=== PATIENT | female | born 1955 | race Caucasian/White ===

== ENCOUNTER 2023-06-29 13:08 | Emergency (ER) | payer MEDICARE ==
[2023-06-29] MEDS ORDERED: Sodium Chloride 0.9% 10 ML Syringe FLUSH PRN (13:16)
[2023-06-29 13:28] LABS: HEMATOCRIT 40.2 % (37.0-47.0); HEMOGLOBIN 13.9 g/dL (11.5-16.5); MEAN CORPUSCULAR HEMOGLOBIN 30.2 pg (27.0-32.0); MEAN CORPUSCULAR HGB CONC 34.6 g/dL (31.0-35.0); MEAN PLATELET VOLUME 9.3 fL (6.0-10.0); RED BLOOD CELL COUNT 4.61 M/uL (3.80-5.80); RED CELL DISTRIBUTION WIDTH 13.4 % (11.0-16.0); WHITE BLOOD CELL COUNT,WBC 9.4 K/uL (4.0-11.0)
[2023-06-29 13:49] LABS: A/G RATIO 1.1 (0.8-2.0); ALBUMIN 3.8 g/dL (3.4-5.0); ANION GAP 15.9 mmol/L (5.0-15.0); BILIRUBIN TOTAL 0.4 mg/dL (0.0-1.0); BUN/CREATININE RATIO 16.2 (6-25); CALCIUM 9.8 mg/dL (8.5-10.1); CREATININE 1.05 mg/dL (0.55-1.02); EST CRCL DRUG DOSING (CG) 48.48 mL/min; MAGNESIUM 1.7 mg/dL (1.8-2.4); PHOSPHORUS 2.6 mg/dL (2.5-4.9); POTASSIUM,K 3.9 mmol/L (3.5-5.1); PROTEIN TOTAL,TP 7.3 g/dL (6.4-8.2)
[2023-06-29] MEDS: Ondansetron 4 MG/2 ML SDV IVPUSH ONE (13:58)
[2023-06-29] MEDS: Sodium Chloride 0.9% 1,000 ML IV SCH (13:58)
[2023-06-29] MEDS: Ondansetron 4 MG/2 ML SDV ONE (14:14)
== END 2023-06-29 17:10 | disposition home or self-care (01) ==
LOC: LB.ED 13:08
DX: E83.42 Hypomagnesemia (principal); R42 Dizziness and giddiness
CPT/HCPCS: 36415; 70450; 71045; 80053; 83735; 84100; 84443; 84484; 85027; 85379; 93005; 93010; 96361; 96365; 96375; 99283; 99284-25; J2405; J3475; J7030

== ENCOUNTER 2023-10-22 09:57 | Emergency (ER) | payer MEDICARE ==
[2023-10-22] MEDS: Ondansetron 4 MG Tab.DIS PO ONE (10:34)
== END 2023-10-22 10:55 | disposition home or self-care (01) ==
LOC: LB.ED 09:57
DX: U07.1 COVID-19 (principal); K29.70 Gastritis, unspecified, without bleeding; K29.80 Duodenitis without bleeding; I10 Essential (primary) hypertension; Z88.2 Allergy status to sulfonamides; Z87.891 Personal history of nicotine dependence
CPT/HCPCS: 71045; 99284; Q0162

== ENCOUNTER 2025-07-17 08:10 | Emergency (ER) | payer MEDICARE ==
[2025-07-17] MEDS ORDERED: Sodium Chloride 0.9% 10 ML Syringe FLUSH PRN (09:48)
[2025-07-17] MEDS: Ketorolac 15 MG/ML SDV IVPUSH ONE (10:04)
== END 2025-07-17 11:30 | disposition home or self-care (01) ==
LOC: LB.ED 08:10
DX: B02.30 Zoster ocular disease, unspecified (principal); Z88.2 Allergy status to sulfonamides; Z79.899 Other long term (current) drug therapy
CPT/HCPCS: 70450; 96374; 99284; J1885